=== PATIENT | female | born 1940 | race Caucasian/White ===

== ENCOUNTER 2021-02-19 17:35 | Inpatient (IN) | payer MEDICARE, OTHER ==
[~2021-02-19 17:35] MED LIST: BENZOCAINE RC PRN; Bisacodyl 10 MG Supp RECTAL PRN; DOCUSATE SODIUM RC PRN; Diclofenac Sodium 1% Gel 100 GM Tube TOP PRN; Magnesium Hydroxide 400 MG/5 ML Susp 30 ML Cup PO PRN; Melatonin 3 MG Tab PO PRN; Ondansetron 4 MG Tab.DIS PO PRN; Polyethylene Glycol 3350 Powder 17 GM Packet PO PRN; Promethazine 25 MG Tab PO PRN; Simethicone 80 MG Tab.Chew PO PRN; Sodium Phosphate,Monobasic/Sodium Phosphate,Dibasic Enema 133 ML Bottle RECTAL PRN; [UNRECOGNIZED DRUG - OTHER] RC PRN; [UNRECOGNIZED DRUG - OTHER] SCH; cloNIDine 0.1 MG Tab PO PRN; hydrALAZINE 25 MG Tab PO PRN
[2021-02-19] MEDS ORDERED: Aluminum Hydroxide/Magnesium Hydroxide/Simethicone Susp 30 ML Cup PO PRN (18:00)
[2021-02-19] MEDS: atorvaSTATin 10 MG Tab PO SCH (22:51)
[2021-02-19] MEDS: Nortriptyline 10 MG Cap PO SCH (22:51)
[2021-02-19] MEDS: Warfarin 2 MG Tab PO SCH (22:51)
[2021-02-20] MEDS: Levothyroxine 88 MCG Tab PO SCH (06:23)
[2021-02-20] MEDS: Furosemide 20 MG Tab PO SCH (08:23)
[2021-02-20] MEDS: Aspirin 81 MG Tab.EC PO SCH (08:23)
[2021-02-20] MEDS: DULoxetine 60 MG Cap PO SCH (08:23)
[2021-02-20] MEDS: Pantoprazole 40 MG Tab.CR PO SCH (08:24)
[2021-02-20] MEDS: Calcium Citrate/Vitamin D3 315 MG-250 Unit Tab PO SCH (08:24)
[2021-02-20] MEDS: Atenolol 50 MG Tab PO SCH (08:24)
[2021-02-20] MEDS: Lidocaine 4% 1 each Patch TOP SCH (08:25)
[2021-02-20] MEDS: amLODIPine 5 MG Tab PO SCH (08:25)
[2021-02-20] MEDS: metFORMIN 500 MG Tab PO SCH (08:46)
--- NOTE | 2021-02-20 09:55 | PCM.HP.2 ---
H&P History of Present Illness - General Date of Service: 02/20/21 Admit Problem/Dx: Admission Diagnosis/Problem Admission Diagnosis/Problem CVA, Cerebrovascular accident Source of Information: Patient, [facility] Records History Limitations: Reports: Other (history is tangential, rambling at times, difficult to redirect) - History of Present Illness Initial Comments - Free Text/Narative: Sherita had a ground level fall on 01/27/21 and was hospitalized at [facility] in [place], [place]. She was determined to have a small acute infarct in the left thalamus and posterior limb of the internal capsule. CTA of head and neck negative for high-grade stenosis. MRI of brain showed acute lacunar infarct within the left thalamus with chronic right MCA territory infarct and chronic lacunar infarct within the right cerebellum. She was then sent to an comprehensive rehab facility in [place], [place]. She has weakness and clumsiness of right hand and leg. Her leg caves on her when standing. She desired to return home to [place] to be closer to family so was admitted here. She will be swingbed for rehab services to regain strength and balance. Depending upon recovery she will either return home or be admitted to assisted living or less likely detention. She reports having a normal video swallow study. She declined Speech Therapy stating, "I'm an old lady." She has been cooperative with OT and PT services. Onset of Symptoms: Reports: Other. Denies: Sudden Symptom Onset Date: 01/27/21 Location: Reports: Upper Extremity, Right, Lower Extremity, Right Quality: Reports: Other Severity: Moderate Improves with: Reports: Other Worsens with: Reports: Other Context: Reports: Activity/Exercise Associated Symptoms: Reports: Weakness - Related Data Allergies/Adverse Reactions: Allergies Allergy/AdvReac Type Severity Reaction Status Date / Time No Known Allergies Allergy Verified 02/19/21 10:49 Home Medications: Home Meds DULoxetine [Cymbalta] 60 mg PO DAILY 05/17/17 [History] atenoloL [Atenolol] 50 mg PO DAILY 05/17/17 [History] Furosemide 20 mg PO DAILY 03/05/20 [History] Levothyroxine [Synthroid] 88 mcg PO ACBREAKFAST 03/05/20 [History] Nortriptyline 10 mg PO BEDTIME 03/05/20 [History] atorvaSTATin [Lipitor] 5 mg PO BEDTIME 03/05/20 [History] Acetaminophen 650 mg PO Q4H PRN 02/19/21 [History] Alum Hydrox/Mag Hydrox/Simeth [Mag-Al Plus] 30 ml PO Q4H PRN 02/19/21 [History] Aspirin 81 mg PO DAILY 02/19/21 [History] Bisacodyl [Laxative Suppository] 10 mg RC DAILY PRN 02/19/21 [History] Calcium Carbonate [Tums] 500 mg PO TID PRN 02/19/21 [History] Calcium Citrate 950 mg PO DAILY 02/19/21 [History] Diclofenac Sodium [Voltaren 1% Gel] 4 gm TOP Q6H PRN 02/19/21 [History] Docusate Sodium/Benzocaine [Enemeez Plus Mini Enema] 5 ml RC BEDTIME PRN 02/19/21 [History] Lidocaine 4% [Aspercreme 4%] 1 patch TP DAILY 02/19/21 [History] Magnesium Hydroxide [Milk of Magnesia] 30 ml PO DAILY PRN 02/19/21 [History] Melatonin 3 mg PO BEDTIME PRN 02/19/21 [History] Ondansetron [Ondansetron Odt] 4 mg PO Q4H PRN 02/19/21 [History] Pantoprazole [ProTONIX] 40 mg PO DAILY 02/19/21 [History] Promethazine [Phenergan] 25 mg PO Q6H PRN 02/19/21 [History] Sennosides/Docusate Sodium [Docusate Sodium-Sennosides Tab] 2 tab PO BID PRN 02/19/21 [History] Simethicone 80 mg PO TID PRN 02/19/21 [History] Sodium Phosphate,Potter-Dibasic [Enema Ready To Use] 133 ml RC DAILY PRN 02/19/21 [History] Warfarin [Coumadin] 4 mg PO BEDTIME 02/19/21 [History] amLODIPine [Norvasc] 5 mg PO DAILY 02/19/21 [History] cloNIDine [Catapres] 0.1 mg PO Q6H PRN 02/19/21 [History] hydrALAZINE [Apresoline] 25 mg PO Q6H PRN 02/19/21 [History] metFORMIN HCl [Metformin HCl] 500 mg PO DAILY 02/19/21 [History] polyethylene glycoL 3350 [Polyethylene Glycol 3350] 17 gm PO DAILY PRN 02/19/21 [History] Past Medical History - Past Health History Medical/Surgical History: Denies Medical/Surgical History HEENT History: Reports: Other (See Below) Other HEENT History: Thyroid eye disease Cardiovascular History: Reports: High Cholesterol, Hypertension Genitourinary History: Reports: Other (See Below) Other Genitourinary History: Mixed stress and urge incontinece Musculoskeletal History: Reports: Arthritis, Back Pain, Chronic, Fibromyalgia, Osteoarthritis, Other (See Below) Other Musculoskeletal History: Chronic right sided low back pain. Spinal stenosis. Plantar fasciits. Cervical stenosis. Lumbar stenosis Neurological History: Reports: CVA Psychiatric History: Reports: Anxiety, Other (See Below) Other Psychiatric History: Disinhibition behavior Endocrine/Metabolic History: Reports: Diabetes, Type II, Hyperthyroidism, Hypothyroidism Other Endocrine/Metabolic History: Postablative hypothyroidism. Recent night sweats. Graves Disease Dermatologic History: Reports: Other (See Below) Other Dermatologic History: yeast dermatitis - Past Surgical History HEENT Surgical History: Reports: Cataract Surgery, Tonsillectomy Other HEENT Surgeries/Procedures: Tympanoplasty Endocrine Surgical History: Reports: Thyroidectomy Musculoskeletal Surgical History: Reports: Arthroscopic Knee Social & Family History - Family History Family Medical History: No Pertinent Family History - Tobacco Use Tobacco Use Status *Q: Never Tobacco User - Alcohol Use Alcohol Use History: No - Living Situation & Occupation Occupation: Retired H&P Review of Systems - Review of Systems: Review Of Systems: See Below General: Reports: Weakness HEENT: Reports: Glasses Pulmonary: Reports: No Symptoms Cardiovascular: Reports: No Symptoms, Blood Pressure Problem Gastrointestinal: Reports: No Symptoms Genitourinary: Reports: Incontinence Musculoskeletal: Reports: Back Pain Skin: Reports: No Symptoms Psychiatric: Reports: Anxiety, Other (disinhibition, tangential conversation) Neurological: Reports: Difficulty Walking, Weakness, Gait Disturbance Hematologic/Lymphatic: Reports: No Symptoms Immunologic: Reports: No Symptoms Exam - Exam Exam: See Below - Vital Signs Vital Signs: Last Vital Signs Temp 98.7 F 02/20/21 06:00 Pulse 83 02/20/21 08:24 Resp 20 02/20/21 06:00 BP 149/63 H 02/20/21 08:25 Pulse Ox 99 02/20/21 06:00 Weight: 181 lb 12.8 oz - Exam General: Alert, Oriented, Cooperative HEENT: Conjunctiva Clear, EACs Clear, Hearing Intact, Mucosa Moist & [place], Nares Patent Neck: Supple, Trachea Midline, Full Range of Motion. No: Carotid Bruit Lungs: Clear to Auscultation, Normal Respiratory Effort Cardiovascular: Regular Rate, Regular Rhythm, Normal S1, Normal S2 GI/Abdominal Exam: Normal Bowel Sounds, Soft, Non-Tender, No Organomegaly Extremities: Normal Inspection, Non-Tender Skin: Warm, Dry, Intact Neurological: Strength Equal Bilateral, Other Neuro Extensive - Mental Status: Alert, Oriented x3, Normal Cognition, Memory Intact Neuro Extensive - Motor, Sensory, Reflexes: Abnormal Gait, Hemeplagia (R) Psychiatric: Alert, Anxious (weepy), Depressed - Patient Data Lab Results Last 24 hrs: Laboratory Results - last 24 hr 02/20/21 Range/Units 06:08 PT 29.4 H (9.9-12.5) SEC INR 2.7 (2.0-3.5) Sepsis Event Note - Evaluation Sepsis Screening Result: No Definite Risk - Focused Exam Vital Signs: Vital Signs Temp Pulse Pulse Resp BP BP Pulse Ox 02/20/21 08:25 149/63 H 02/20/21 08:24 83 149/63 H 02/20/21 06:00 98.7 F 83 20 149/63 H 99 02/19/21 23:02 96.4 F L 87 20 169/80 H 99 *Q Meaningful Use (ADM) - VTE *Q VTE Pharmacological Contraindications *Q: Not Candidate LT Anticoag - Problem List (1) CVA (cerebral vascular accident) SNOMED Code(s): 033326919 ICD Code: I63.9 - CEREBRAL INFARCTION, UNSPECIFIED Status: Acute Priority: High Current Visit: Yes Onset Date: ~01/27/21 Qualifiers: Precerebral and cerebral artery: unspecified cerebral artery Problem List Initiated/Reviewed/Updated: Yes Orders Last 24hrs: Active Orders 24 hr Category Date Time Status Patient Status [ADT] Routine ADT 02/19/21 15:26 Active Blood Glucose Check, Bedside [RC] .PRN Care 02/19/21 15:39 Active Oxygen Therapy [RC] .PRN Care 02/19/21 15:26 Active Up With Assistance [RC] 08,20 Care 02/19/21 15:31 Active Vital Signs [RC] 06,18 Care 02/19/21 15:26 Active Consult to Case Management/Crisis Specialist [CONS] Cons 02/19/21 15:31 Active Routine OT Evaluation and Treatment [CONS] Routine Cons 02/19/21 15:31 Active PT Evaluation and Treatment [CONS] Routine Cons 02/19/21 15:31 Active [employer] Diet [DIET] Diet 02/20/21 Breakfast Active INR,PT,PROTHROMBIN TIME [COAG] Routine Lab 02/21/21 05:00 Ordered Acetaminophen [TylenoL] Med 02/19/21 18:00 Active 650 mg PO Q4H PRN Alum Hydrox/Mag Hydrox/Simeth [Mag-Al Plus] Med 02/19/21 18:00 Active 30 ml PO Q4H PRN Aspirin [Halfprin] Med 02/20/21 08:00 Active 81 mg PO DAILY Calcium Carbonate [Tums Extra Strength] Med 02/19/21 13:56 Active 750 mg PO TID PRN Calcium Citrate/Vitamin D3 [Calcium Citrate + D] Med 02/20/21 08:00 Active 3 tab PO DAILY DULoxetine [Cymbalta] Med 02/20/21 08:00 Active 60 mg PO DAILY Diclofenac Sodium [Voltaren 1% Gel] Med 02/19/21 13:44 Active 4 gm TOP Q6H PRN Docusate Sodium/Sennosides [Senna Plus] Med 02/19/21 13:44 Active 2 tab PO BID PRN Furosemide [Lasix] Med 02/20/21 08:00 Active 20 mg PO DAILY Levothyroxine [Synthroid] Med 02/20/21 07:00 Active 88 mcg PO ACBREAKFAST Lidocaine 4% [Aspercreme 4%] Med 02/20/21 08:00 Active 1 each TOP DAILY Magnesium Hydroxide [Milk of Magnesia] Med 02/19/21 13:44 Active 30 ml PO DAILY PRN Melatonin Med 02/19/21 13:44 Active 3 mg PO BEDTIME PRN Nortriptyline Med 02/19/21 20:00 Active 10 mg PO BEDTIME Ondansetron [Zofran ODT] Med 02/19/21 14:02 Active 4 mg PO Q4H PRN Pantoprazole [ProTONIX] Med 02/20/21 08:00 Active 40 mg PO DAILY Pharmacy Consult [Consult to Pharmacy] Med 02/19/21 15:30 Pending 1 each .XX ASDIRECTED Promethazine [Phenergan] Med 02/19/21 13:44 Active 25 mg PO Q6H PRN Simethicone Med 02/19/21 13:44 Active 80 mg PO TID PRN Warfarin [Coumadin] Med 02/19/21 20:00 Active 4 mg PO BEDTIME amLODIPine [Norvasc] Med 02/20/21 08:00 Active 5 mg PO DAILY atenoloL [Tenormin] Med 02/20/21 08:00 Active 50 mg PO DAILY atorvaSTATin [Lipitor] Med 02/19/21 20:00 Active 5 mg PO BEDTIME bisacodyL [Dulcolax] Med 02/19/21 13:38 Active 10 mg RECTAL DAILY PRN metFORMIN [Glucophage] Med 02/20/21 08:00 Active 500 mg PO DAILY polyethylene glycoL 3350 [MiraLAX] Med 02/19/21 13:44 Active 17 gm PO DAILY PRN VTE Pharmacological Contraindications [AST] Click To Oth 02/19/21 15:31 Ordered Edit Resuscitation Status Routine Resus Stat 02/19/21 15:25 Ordered Medication Orders Acetaminophen (Acetaminophen 325 Mg Tab) 650 mg PO Q4H PRN PRN Reason: Pain Al Hydroxide/Mg Hydroxide (Aluminum Hydroxide/Magnesium Hydroxide/Simethicone Susp 30 Ml Cup) 30 ml PO Q4H PRN PRN Reason: Constipation Amlodipine Besylate (Amlodipine 5 Mg Tab) 5 mg PO DAILY [facility] Last Admin: 02/20/21 08:25 Dose: 5 mg Documented by: HARESH Aspirin (Aspirin 81 Mg Tab.Ec) 81 mg PO DAILY [facility] Last Admin: 02/20/21 08:23 Dose: 81 mg Documented by: HARESH Atenolol (Atenolol 50 Mg Tab) 50 mg PO DAILY [facility] Last Admin: 02/20/21 08:24 Dose: 50 mg Documented by: HARESH Atorvastatin Calcium (Atorvastatin 10 Mg Tab) 5 mg PO BEDTIME [facility] Last Admin: 02/19/21 22:51 Dose: 5 mg Documented by: BRUNILDAABESonal Bisacodyl (Bisacodyl 10 Mg Supp) 10 mg RECTAL DAILY PRN PRN Reason: Constipation Calcium Carbonate/Glycine (Calcium Carbonate 750 Mg Tab.Chew) 750 mg PO TID PRN PRN Reason: Heartburn Calcium Citrate (Calcium Citrate/Vitamin D3 315 Mg-250 Unit Tab) 3 tab PO DAILY [facility] Last Admin: 02/20/21 08:24 Dose: 3 tab Documented by: HARESH Diclofenac Sodium (Diclofenac Sodium 1% Gel 100 Gm Tube) 4 gm TOP Q6H PRN PRN Reason: Pain Duloxetine HCl (Duloxetine 60 Mg Cap) 60 mg PO DAILY [facility] Last Admin: 02/20/21 08:23 Dose: 60 mg Documented by: HARESH Furosemide (Furosemide 20 Mg Tab) 20 mg PO DAILY [facility] Last Admin: 02/20/21 08:23 Dose: 20 mg Documented by: HARESH Levothyroxine Sodium (Levothyroxine 88 Mcg Tab) 88 mcg PO ACBREAKFAST [facility] Last Admin: 02/20/21 06:23 Dose: 88 mcg Documented by: ЕКАТЕРИНА Lidocaine (Lidocaine 4% 1 Each Patch) 1 each TOP DAILY [facility] Last Admin: 02/20/21 08:25 Dose: 1 each Documented by: HARESH Magnesium Hydroxide (Magnesium Hydroxide 400 Mg/5 Ml Susp 30 Ml Cup) 30 ml PO DAILY PRN PRN Reason: Constipation Melatonin (Melatonin 3 Mg Tab) 3 mg PO BEDTIME PRN PRN Reason: Insomnia Metformin HCl (Metformin 500 Mg Tab) 500 mg PO DAILY [facility] Last Admin: 02/20/21 08:46 Dose: 500 mg Documented by: HARESH Nortriptyline HCl (Nortriptyline 10 Mg Cap) 10 mg PO BEDTIME [facility] Last Admin: 02/19/21 22:51 Dose: 10 mg Documented by: ROMPATRICIA Ondansetron HCl (Ondansetron 4 Mg Tab.Dis) 4 mg PO Q4H PRN PRN Reason: Nausea Pantoprazole Sodium (Pantoprazole 40 Mg Tab.Cr) 40 mg PO DAILY [facility] Last Admin: 02/20/21 08:24 Dose: 40 mg Documented by: HARESH Pharmacy Consult (Pharmacy Consult Order) 1 each .XX ASDIRECTED [facility] Polyethylene Glycol (Polyethylene Glycol 3350 Powder 17 Gm Packet) 17 gm PO DAILY PRN PRN Reason: Constipation Promethazine HCl (Promethazine 25 Mg Tab) 25 mg PO Q6H PRN PRN Reason: Nausea Senna/Docusate Sodium (Docusate Sodium/Sennosides 50-8.6 Mg Tab) 2 tab PO BID PRN PRN Reason: Constipation Simethicone (Simethicone 80 Mg Tab.Chew) 80 mg PO TID PRN PRN Reason: Gas Warfarin Sodium (Warfarin 2 Mg Tab) 4 mg PO BEDTIME [facility] Last Admin: 02/19/21 22:51 Dose: 4 mg Documented by: MADALYN Assessment/Plan Comment:: Assessment: 1. CVA, acute. 2. Gait abnormality with ADL dysfunction. 3. DM type 2. 4. Essential hypertension. 5. Hyperlipidemia. 6. Hypothyroidism. 7. Lumbar stenosis. 8. Fibromyalgia. 9. Anxiety. Plan: She is admitted to [facility] for rehab services including PT and OT due to weakness and clumsiness of right upper and lower extremities. She also requires case management to assist with discharge planning/ coordination. I will discuss Code Status with patient and spouse together as she was not comfortable making her wishes known without Tanja present. She does have an [employer] Directive on file. Her family had indicated most likely discharge would be to [facility] but Sherita's wish is to go home. - Tanja; Sons- Ar Dowd, Simone; Daughter- Thelma Dowd and Simone have daughter's who are GUERO's.
[2021-02-20] MEDS: Nortriptyline 10 MG Cap PO SCH (20:02)
[2021-02-20] MEDS: atorvaSTATin 10 MG Tab PO SCH (20:02)
[2021-02-20] MEDS: Warfarin 2 MG Tab PO SCH (20:02)
[2021-02-21] MEDS: Levothyroxine 88 MCG Tab PO SCH (06:28)
[2021-02-21] MEDS: DULoxetine 60 MG Cap PO SCH (08:03)
[2021-02-21] MEDS: Aspirin 81 MG Tab.EC PO SCH (08:03)
[2021-02-21] MEDS: Lidocaine 4% 1 each Patch TOP SCH (08:03)
[2021-02-21] MEDS: Atenolol 50 MG Tab PO SCH (08:03)
[2021-02-21] MEDS: Pantoprazole 40 MG Tab.CR PO SCH (08:04)
[2021-02-21] MEDS: Furosemide 20 MG Tab PO SCH (08:04)
[2021-02-21] MEDS: amLODIPine 5 MG Tab PO SCH (08:04)
[2021-02-21] MEDS: metFORMIN 500 MG Tab PO SCH (08:04)
[2021-02-21] MEDS: Calcium Citrate/Vitamin D3 315 MG-250 Unit Tab PO SCH (08:05)
[2021-02-21] MEDS: Nortriptyline 10 MG Cap PO SCH (20:03)
[2021-02-21] MEDS: atorvaSTATin 10 MG Tab PO SCH (20:03)
[2021-02-21] MEDS: Acetaminophen 325 MG Tab PO PRN (21:50)
[2021-02-22] MEDS: Levothyroxine 88 MCG Tab PO SCH (06:41)
[2021-02-22] MEDS: Lidocaine 4% 1 each Patch TOP SCH (08:44)
[2021-02-22] MEDS: Calcium Citrate/Vitamin D3 315 MG-250 Unit Tab PO SCH (08:44)
[2021-02-22] MEDS: Aspirin 81 MG Tab.EC PO SCH (08:44)
[2021-02-22] MEDS: Pantoprazole 40 MG Tab.CR PO SCH (08:45)
[2021-02-22] MEDS: metFORMIN 500 MG Tab PO SCH (08:45)
[2021-02-22] MEDS: DULoxetine 60 MG Cap PO SCH (08:45)
[2021-02-22] MEDS: Atenolol 50 MG Tab PO SCH (08:46)
[2021-02-22] MEDS: Furosemide 20 MG Tab PO SCH (08:46)
[2021-02-22] MEDS: amLODIPine 5 MG Tab PO SCH (08:47)
[2021-02-22] MEDS: Nortriptyline 10 MG Cap PO SCH (19:53)
[2021-02-22] MEDS: atorvaSTATin 10 MG Tab PO SCH (19:53)
[2021-02-22] MEDS: Acetaminophen 325 MG Tab PO PRN (19:57)
[2021-02-23] MEDS: Levothyroxine 88 MCG Tab PO SCH (06:38)
[2021-02-23] MEDS: metFORMIN 500 MG Tab PO SCH (08:26)
[2021-02-23] MEDS: Lidocaine 4% 1 each Patch TOP SCH (08:26)
[2021-02-23] MEDS: Calcium Citrate/Vitamin D3 315 MG-250 Unit Tab PO SCH (08:26)
[2021-02-23] MEDS: Atenolol 50 MG Tab PO SCH (08:27)
[2021-02-23] MEDS: Furosemide 20 MG Tab PO SCH (08:27)
[2021-02-23] MEDS: Aspirin 81 MG Tab.EC PO SCH (08:27)
[2021-02-23] MEDS: Pantoprazole 40 MG Tab.CR PO SCH (08:27)
[2021-02-23] MEDS: DULoxetine 60 MG Cap PO SCH (08:27)
[2021-02-23] MEDS: amLODIPine 5 MG Tab PO SCH (08:28)
[2021-02-23] MEDS: atorvaSTATin 10 MG Tab PO SCH (19:33)
[2021-02-23] MEDS: Nortriptyline 10 MG Cap PO SCH (19:33)
[2021-02-24] MEDS: Levothyroxine 88 MCG Tab PO SCH (06:18)
[2021-02-24] MEDS: Pantoprazole 40 MG Tab.CR PO SCH (08:29)
[2021-02-24] MEDS: DULoxetine 60 MG Cap PO SCH (08:29)
[2021-02-24] MEDS: Aspirin 81 MG Tab.EC PO SCH (08:29)
[2021-02-24] MEDS: Calcium Citrate/Vitamin D3 315 MG-250 Unit Tab PO SCH (08:29)
[2021-02-24] MEDS: Atenolol 50 MG Tab PO SCH (08:29)
[2021-02-24] MEDS: Furosemide 20 MG Tab PO SCH (08:30)
[2021-02-24] MEDS: amLODIPine 5 MG Tab PO SCH (08:30)
[2021-02-24] MEDS: metFORMIN 500 MG Tab PO SCH (08:30)
[2021-02-24] MEDS: Lidocaine 4% 1 each Patch TOP SCH (08:30)
[2021-02-24] MEDS: Nortriptyline 10 MG Cap PO SCH (20:51)
[2021-02-24] MEDS: Warfarin 2 MG Tab PO SCH (20:51)
[2021-02-24] MEDS: atorvaSTATin 10 MG Tab PO SCH (20:51)
[2021-02-25] MEDS: Levothyroxine 88 MCG Tab PO SCH (06:17)
[2021-02-25] MEDS: metFORMIN 500 MG Tab PO SCH (07:43)
[2021-02-25] MEDS: amLODIPine 5 MG Tab PO SCH (07:43)
[2021-02-25] MEDS: Pantoprazole 40 MG Tab.CR PO SCH (07:43)
[2021-02-25] MEDS: Atenolol 50 MG Tab PO SCH (07:43)
[2021-02-25] MEDS: Aspirin 81 MG Tab.EC PO SCH (07:44)
[2021-02-25] MEDS: Calcium Citrate/Vitamin D3 315 MG-250 Unit Tab PO SCH (07:44)
[2021-02-25] MEDS: Furosemide 20 MG Tab PO SCH (07:44)
[2021-02-25] MEDS: DULoxetine 60 MG Cap PO SCH (07:44)
[2021-02-25] MEDS: Lidocaine 4% 1 each Patch TOP SCH (07:44)
--- NOTE | 2021-02-25 14:59 | PCM.SN.2 ---
- Free Text/Narrative Note: Liliana called as she complains of a rash to her perineal area. Inspection reveals mild erythema along right labia. Odor of kenyatta present. Rx for Nystatin Cream BID x 10 days written. Otherwise no concerns and visiting with relatives. Abhijeet BAÑUELOS
[2021-02-25] MEDS: Warfarin 2 MG Tab PO SCH (20:09)
[2021-02-25] MEDS: Nystatin Crm 30 GM Tube TOP SCH (20:09)
[2021-02-25] MEDS: atorvaSTATin 10 MG Tab PO SCH (20:09)
[2021-02-25] MEDS: Nortriptyline 10 MG Cap PO SCH (20:09)
[2021-02-26] MEDS: Levothyroxine 88 MCG Tab PO SCH (06:20)
[2021-02-26] MEDS: Aspirin 81 MG Tab.EC PO SCH (07:55)
[2021-02-26] MEDS: Lidocaine 4% 1 each Patch TOP SCH (07:55)
[2021-02-26] MEDS: Nystatin Crm 30 GM Tube TOP SCH ×2 (07:55→19:55)
[2021-02-26] MEDS: Calcium Citrate/Vitamin D3 315 MG-250 Unit Tab PO SCH (07:55)
[2021-02-26] MEDS: amLODIPine 5 MG Tab PO SCH (07:56)
[2021-02-26] MEDS: Pantoprazole 40 MG Tab.CR PO SCH (07:56)
[2021-02-26] MEDS: DULoxetine 60 MG Cap PO SCH (07:56)
[2021-02-26] MEDS: Furosemide 20 MG Tab PO SCH (07:56)
[2021-02-26] MEDS: Atenolol 50 MG Tab PO SCH (07:56)
[2021-02-26] MEDS: metFORMIN 500 MG Tab PO SCH (07:56)
[2021-02-26] MEDS: Acetaminophen 325 MG Tab PO PRN ×2 (07:56→19:55)
[2021-02-26] MEDS: Warfarin 2 MG Tab PO SCH (19:54)
[2021-02-26] MEDS: atorvaSTATin 10 MG Tab PO SCH (19:54)
[2021-02-26] MEDS: Nortriptyline 10 MG Cap PO SCH (19:54)
[2021-02-27] MEDS: Levothyroxine 88 MCG Tab PO SCH (06:18)
[2021-02-27] MEDS: Lidocaine 4% 1 each Patch TOP SCH (07:31)
[2021-02-27] MEDS: Nystatin Crm 30 GM Tube TOP SCH ×2 (07:31→19:57)
[2021-02-27] MEDS: amLODIPine 5 MG Tab PO SCH (07:32)
[2021-02-27] MEDS: Acetaminophen 325 MG Tab PO PRN ×2 (07:32→19:56)
[2021-02-27] MEDS: DULoxetine 60 MG Cap PO SCH (07:32)
[2021-02-27] MEDS: metFORMIN 500 MG Tab PO SCH (07:32)
[2021-02-27] MEDS: Atenolol 50 MG Tab PO SCH (07:32)
[2021-02-27] MEDS: Calcium Citrate/Vitamin D3 315 MG-250 Unit Tab PO SCH (07:32)
[2021-02-27] MEDS: Pantoprazole 40 MG Tab.CR PO SCH (07:33)
[2021-02-27] MEDS: Furosemide 20 MG Tab PO SCH (07:33)
[2021-02-27] MEDS: Aspirin 81 MG Tab.EC PO SCH (07:33)
[2021-02-27] MEDS: Calcium Carbonate 750 MG Tab.Chew PO PRN (19:56)
[2021-02-27] MEDS: Warfarin 2 MG Tab PO SCH (19:56)
[2021-02-27] MEDS: atorvaSTATin 10 MG Tab PO SCH (19:56)
[2021-02-27] MEDS: Nortriptyline 10 MG Cap PO SCH (19:56)
[2021-02-28] MEDS: Levothyroxine 88 MCG Tab PO SCH (06:32)
[2021-02-28] MEDS: Acetaminophen 325 MG Tab PO PRN (07:56)
[2021-02-28] MEDS: Atenolol 50 MG Tab PO SCH (07:56)
[2021-02-28] MEDS: Nystatin Crm 30 GM Tube TOP SCH ×2 (07:56→20:30)
[2021-02-28] MEDS: Calcium Citrate/Vitamin D3 315 MG-250 Unit Tab PO SCH (07:57)
[2021-02-28] MEDS: Aspirin 81 MG Tab.EC PO SCH (07:57)
[2021-02-28] MEDS: metFORMIN 500 MG Tab PO SCH (07:57)
[2021-02-28] MEDS: Furosemide 20 MG Tab PO SCH (07:58)
[2021-02-28] MEDS: Pantoprazole 40 MG Tab.CR PO SCH (07:58)
[2021-02-28] MEDS: DULoxetine 60 MG Cap PO SCH (07:58)
[2021-02-28] MEDS: Lidocaine 4% 1 each Patch TOP SCH (07:58)
[2021-02-28] MEDS: amLODIPine 5 MG Tab PO SCH (07:58)
[2021-02-28] MEDS: atorvaSTATin 10 MG Tab PO SCH (20:27)
[2021-02-28] MEDS: Warfarin 2 MG Tab PO SCH (20:29)
[2021-02-28] MEDS: Nortriptyline 10 MG Cap PO SCH (20:30)
[2021-03-01] MEDS: Levothyroxine 88 MCG Tab PO SCH (06:39)
[2021-03-01] MEDS: Nystatin Crm 30 GM Tube TOP SCH ×2 (08:13→20:16)
[2021-03-01] MEDS: Lidocaine 4% 1 each Patch TOP SCH (08:13)
[2021-03-01] MEDS: Acetaminophen 325 MG Tab PO PRN (08:13)
[2021-03-01] MEDS: Calcium Citrate/Vitamin D3 315 MG-250 Unit Tab PO SCH (08:13)
[2021-03-01] MEDS: Furosemide 20 MG Tab PO SCH (08:14)
[2021-03-01] MEDS: DULoxetine 60 MG Cap PO SCH (08:14)
[2021-03-01] MEDS: metFORMIN 500 MG Tab PO SCH (08:14)
[2021-03-01] MEDS: Aspirin 81 MG Tab.EC PO SCH (08:14)
[2021-03-01] MEDS: Pantoprazole 40 MG Tab.CR PO SCH (08:14)
[2021-03-01] MEDS: amLODIPine 5 MG Tab PO SCH (08:14)
[2021-03-01] MEDS: Atenolol 50 MG Tab PO SCH (08:15)
[2021-03-01] MEDS: Nortriptyline 10 MG Cap PO SCH (20:15)
[2021-03-01] MEDS: atorvaSTATin 10 MG Tab PO SCH (20:16)
[2021-03-01] MEDS: Warfarin 2 MG Tab PO SCH (23:15)
[2021-03-02] MEDS: Levothyroxine 88 MCG Tab PO SCH (06:17)
[2021-03-02] MEDS: Lidocaine 4% 1 each Patch TOP SCH (07:39)
[2021-03-02] MEDS: Acetaminophen 325 MG Tab PO PRN (07:40)
[2021-03-02] MEDS: Nystatin Crm 30 GM Tube TOP SCH ×2 (07:40→20:20)
[2021-03-02] MEDS: amLODIPine 5 MG Tab PO SCH (07:41)
[2021-03-02] MEDS: metFORMIN 500 MG Tab PO SCH (07:41)
[2021-03-02] MEDS: Pantoprazole 40 MG Tab.CR PO SCH (07:41)
[2021-03-02] MEDS: Calcium Citrate/Vitamin D3 315 MG-250 Unit Tab PO SCH (07:41)
[2021-03-02] MEDS: Furosemide 20 MG Tab PO SCH (07:41)
[2021-03-02] MEDS: DULoxetine 60 MG Cap PO SCH (07:41)
[2021-03-02] MEDS: Aspirin 81 MG Tab.EC PO SCH (07:41)
[2021-03-02] MEDS: Atenolol 50 MG Tab PO SCH (07:41)
[2021-03-02] MEDS: atorvaSTATin 10 MG Tab PO SCH (20:20)
[2021-03-02] MEDS: Warfarin 2 MG Tab PO SCH (20:20)
[2021-03-02] MEDS: Nortriptyline 10 MG Cap PO SCH (20:20)
[2021-03-02] MEDS: Calcium Carbonate 750 MG Tab.Chew PO PRN (20:22)
[2021-03-03] MEDS: Levothyroxine 88 MCG Tab PO SCH (06:41)
[2021-03-03] MEDS: Lidocaine 4% 1 each Patch TOP SCH (08:16)
[2021-03-03] MEDS: DULoxetine 60 MG Cap PO SCH (08:19)
[2021-03-03] MEDS: metFORMIN 500 MG Tab PO SCH (08:19)
[2021-03-03] MEDS: Calcium Citrate/Vitamin D3 315 MG-250 Unit Tab PO SCH (08:19)
[2021-03-03] MEDS: Furosemide 20 MG Tab PO SCH (08:20)
[2021-03-03] MEDS: Aspirin 81 MG Tab.EC PO SCH (08:20)
[2021-03-03] MEDS: amLODIPine 5 MG Tab PO SCH (08:20)
[2021-03-03] MEDS: Pantoprazole 40 MG Tab.CR PO SCH (08:20)
[2021-03-03] MEDS: Atenolol 50 MG Tab PO SCH (08:21)
[2021-03-03] MEDS: Nystatin Crm 30 GM Tube TOP SCH ×2 (08:23→19:40)
[2021-03-03] MEDS: Nortriptyline 10 MG Cap PO SCH (19:40)
[2021-03-03] MEDS: Warfarin 2 MG Tab PO SCH (19:40)
[2021-03-03] MEDS: atorvaSTATin 10 MG Tab PO SCH (19:40)
[2021-03-03] MEDS: Calcium Carbonate 750 MG Tab.Chew PO PRN (19:42)
[2021-03-04] MEDS: Levothyroxine 88 MCG Tab PO SCH (06:03)
[2021-03-04] MEDS: Lidocaine 4% 1 each Patch TOP SCH (08:09)
[2021-03-04] MEDS: Acetaminophen 325 MG Tab PO PRN ×2 (08:09→21:28)
[2021-03-04] MEDS: Atenolol 50 MG Tab PO SCH (08:09)
[2021-03-04] MEDS: Furosemide 20 MG Tab PO SCH (08:10)
[2021-03-04] MEDS: Calcium Citrate/Vitamin D3 315 MG-250 Unit Tab PO SCH (08:10)
[2021-03-04] MEDS: metFORMIN 500 MG Tab PO SCH (08:10)
[2021-03-04] MEDS: DULoxetine 60 MG Cap PO SCH (08:10)
[2021-03-04] MEDS: Pantoprazole 40 MG Tab.CR PO SCH (08:10)
[2021-03-04] MEDS: amLODIPine 5 MG Tab PO SCH (08:10)
[2021-03-04] MEDS: Aspirin 81 MG Tab.EC PO SCH (08:10)
[2021-03-04] MEDS: Nystatin Crm 30 GM Tube TOP SCH ×2 (08:11→21:29)
[2021-03-04] MEDS: atorvaSTATin 10 MG Tab PO SCH (21:27)
[2021-03-04] MEDS: Warfarin 2 MG Tab PO SCH (21:28)
[2021-03-04] MEDS: Nortriptyline 10 MG Cap PO SCH (21:28)
[2021-03-05] MEDS: Levothyroxine 88 MCG Tab PO SCH (06:13)
[2021-03-05] MEDS: Aspirin 81 MG Tab.EC PO SCH (07:44)
[2021-03-05] MEDS: Furosemide 20 MG Tab PO SCH (07:44)
[2021-03-05] MEDS: Calcium Citrate/Vitamin D3 315 MG-250 Unit Tab PO SCH (07:44)
[2021-03-05] MEDS: DULoxetine 60 MG Cap PO SCH (07:44)
[2021-03-05] MEDS: Pantoprazole 40 MG Tab.CR PO SCH (07:44)
[2021-03-05] MEDS: Atenolol 50 MG Tab PO SCH (07:45)
[2021-03-05] MEDS: amLODIPine 5 MG Tab PO SCH (07:45)
[2021-03-05] MEDS: Nystatin Crm 30 GM Tube TOP SCH ×2 (07:45→20:16)
[2021-03-05] MEDS: metFORMIN 500 MG Tab PO SCH (07:45)
[2021-03-05] MEDS: Lidocaine 4% 1 each Patch TOP SCH (07:46)
[2021-03-05] MEDS: atorvaSTATin 10 MG Tab PO SCH (20:14)
[2021-03-05] MEDS: Nortriptyline 10 MG Cap PO SCH (20:15)
[2021-03-05] MEDS: Warfarin 2 MG Tab PO SCH (20:15)
[2021-03-06] MEDS: Levothyroxine 88 MCG Tab PO SCH (06:12)
[2021-03-06] MEDS: Pantoprazole 40 MG Tab.CR PO SCH (07:49)
[2021-03-06] MEDS: amLODIPine 5 MG Tab PO SCH (07:50)
[2021-03-06] MEDS: metFORMIN 500 MG Tab PO SCH (07:50)
[2021-03-06] MEDS: DULoxetine 60 MG Cap PO SCH (07:50)
[2021-03-06] MEDS: Calcium Citrate/Vitamin D3 315 MG-250 Unit Tab PO SCH (07:50)
[2021-03-06] MEDS: Lidocaine 4% 1 each Patch TOP SCH (07:51)
[2021-03-06] MEDS: Aspirin 81 MG Tab.EC PO SCH (07:51)
[2021-03-06] MEDS: Nystatin Crm 30 GM Tube TOP SCH ×2 (07:51→19:24)
[2021-03-06] MEDS: Furosemide 20 MG Tab PO SCH (07:51)
[2021-03-06] MEDS: Atenolol 50 MG Tab PO SCH (07:51)
[2021-03-06] MEDS: Warfarin 2 MG Tab PO SCH (19:22)
[2021-03-06] MEDS: Nortriptyline 10 MG Cap PO SCH (19:23)
[2021-03-06] MEDS: atorvaSTATin 10 MG Tab PO SCH (19:23)
[2021-03-07] MEDS: Levothyroxine 88 MCG Tab PO SCH (06:17)
[2021-03-07 07:52] LABS: ANION GAP 11.9 mmol/L (5-15)
[2021-03-07] MEDS: amLODIPine 5 MG Tab PO SCH (09:23)
[2021-03-07] MEDS: Aspirin 81 MG Tab.EC PO SCH (09:23)
[2021-03-07] MEDS: Atenolol 50 MG Tab PO SCH (09:24)
[2021-03-07] MEDS: Calcium Citrate/Vitamin D3 315 MG-250 Unit Tab PO SCH (09:24)
[2021-03-07] MEDS: Pantoprazole 40 MG Tab.CR PO SCH (09:24)
[2021-03-07] MEDS: Furosemide 20 MG Tab PO SCH (09:24)
[2021-03-07] MEDS: DULoxetine 60 MG Cap PO SCH (09:24)
[2021-03-07] MEDS: metFORMIN 500 MG Tab PO SCH (09:24)
[2021-03-07] MEDS: Nystatin Crm 30 GM Tube TOP SCH ×2 (09:25→21:14)
[2021-03-07] MEDS: Lidocaine 4% 1 each Patch TOP SCH (09:25)
--- NOTE | 2021-03-07 10:04 | PCM.SN.2 ---
- Free Text/Narrative Note: Coverage note 03/07/21 S: "Feel like I am having a stroke again": I was called to see pt because she felt like her right leg was weak, like she was having a stroke again. Pt had a CVA in January while in [place] states she had weakness in right arm and leg, had a blood clot in brainstem. She was already on blood thinners and was treated with PT. Pt was able to walk with walker when she entered [facility] and her arm was about back to normal OBJ: Pt awake and alert and anxious Temp 98 pulse 84 BP 128/75 RR 17 O2 sat 94 Lungs clear Cor w/o rubs,murmurs or gallops Ext: no edema No facial asymmetry speech fluent Moving all ext equally except for minimal weakness Right elbow flexion Pt able to walk with walker w/o obvious leg weakness right or left Meds: Norvasc,Atenolol Lipitor, Luis and D, Cymbalta, Lasix , Synthroid,lidocaine cream, metformin, nortriptyline, Protonix, warfarin, nystatin cream Labs:inr 2.5 na 137 K 2.9 cl 98 CO2 30 BUN 13 cr.9 IMPL 1. CVA- no sign of focal weakness 2. Hypokelima: suspect this is cause for weak feeling- replace po 3. AODM: check BS bid, may need to increase metformin
[2021-03-07] MEDS: Potassium Bicarbonate 25 MEQ Tab.EFF PO SCH ×2 (11:49→20:50)
[2021-03-07] MEDS: Warfarin 2 MG Tab PO SCH (20:50)
[2021-03-07] MEDS: Nortriptyline 10 MG Cap PO SCH (20:50)
[2021-03-07] MEDS: atorvaSTATin 10 MG Tab PO SCH (20:50)
[2021-03-08] MEDS: Levothyroxine 88 MCG Tab PO SCH (06:38)
--- NOTE | 2021-03-08 08:56 | PCM.SN.2 ---
- Free Text/Narrative Note: Coverage note 03/08/2021 S. Pt feels her walking is back to baseline O:Moving all ext equally K 3.4 yesterday evening, Mg 1.5 IMP: Weakness resolved- secondary to electrolyte abnormality Plan: start Kcl 20 QD and Mg Cl 64 QD
[2021-03-08] MEDS: Potassium Bicarbonate 25 MEQ Tab.EFF PO SCH ×2 (09:11→09:20)
[2021-03-08] MEDS: Calcium Citrate/Vitamin D3 315 MG-250 Unit Tab PO SCH (09:12)
[2021-03-08] MEDS: amLODIPine 5 MG Tab PO SCH (09:13)
[2021-03-08] MEDS: metFORMIN 500 MG Tab PO SCH (09:13)
[2021-03-08] MEDS: Aspirin 81 MG Tab.EC PO SCH (09:13)
[2021-03-08] MEDS: DULoxetine 60 MG Cap PO SCH (09:13)
[2021-03-08] MEDS: Pantoprazole 40 MG Tab.CR PO SCH (09:14)
[2021-03-08] MEDS: Atenolol 50 MG Tab PO SCH (09:14)
[2021-03-08] MEDS: Lidocaine 4% 1 each Patch TOP SCH (09:14)
[2021-03-08] MEDS: Furosemide 20 MG Tab PO SCH (09:14)
[2021-03-08] MEDS: Magnesium Chloride 64 MG Tab.ER PO SCH (09:18)
[2021-03-08] MEDS: Nortriptyline 10 MG Cap PO SCH (20:55)
[2021-03-08] MEDS: atorvaSTATin 10 MG Tab PO SCH (20:55)
[2021-03-08] MEDS: Warfarin 2 MG Tab PO SCH (20:55)
[2021-03-09 06:14] VITALS: BP 151/67; PULSE 82
[2021-03-09] MEDS: Levothyroxine 88 MCG Tab PO SCH (06:32)
--- NOTE | 2021-03-09 08:40 | PCM.DCSUM1 ---
Discharge Summary - Hospital Course Free Text/Narrative:: Sherita suffered a CVA on 01/27/21 while in [place], [place]. She was hospitalized and in a Rehab facility prior to returning to [place], [place]. She was admitted swing bed on 02/19/21 for continued therapy services. She completed PT and OT and is ready for discharge to Assisted Living. She uses a walker and is able to walk 200-300 feet. She is able to doff and don clothing. She is eating independently. She will need assist with meals, bathing, and household services. Her spouse is independent but will reside with her in the Assisted Living facility, [facility]. She is on Coumadin and ASA for stroke prevention. She will be managed by [facility]. Follow up with me in 2 weeks. Diagnosis: Stroke: Yes Modified [place] Scale: Slight Disable;Unable to Carry Out Prev Act.Able to Look After Affairs Modified [place] Scale Score: 2 - Discharge Data Discharge Date: 03/09/21 Discharge Disposition: Home, Self-Care 01 Condition: Good - Referral to Home Health Primary Care Physician: Qiana King PA-C - Discharge Diagnosis/Problem(s) (1) CVA (cerebral vascular accident) SNOMED Code(s): 487918243 ICD Code: I63.9 - CEREBRAL INFARCTION, UNSPECIFIED Status: Acute Priority: High Current Visit: Yes Onset Date: ~01/27/21 Qualifiers: CVA mechanism: thrombosis Precerebral and cerebral artery: unspecified cerebral artery Qualified Code(s): I63.30 - Cerebral infarction due to thrombosis of unspecified cerebral artery - Patient Summary/Data Consults: Consultations 02/19/21 15:31 Consult to Case Management/Lean Process Deployment Consultant [CONS] Routine OT Evaluation and Treatment [CONS] Routine PT Evaluation and Treatment [CONS] Routine - Patient Instructions Diet: Usual Diet as Tolerated Activity: As Tolerated Driving: Do Not Drive Showering/Bathing: May Shower - Discharge Plan *PRESCRIPTION DRUG MONITORING PROGRAM REVIEWED*: Not Applicable *COPY OF PRESCRIPTION DRUG MONITORING REPORT IN PATIENT ROBERTO: Not Applicable Home Medications: Home Meds DULoxetine [Cymbalta] 60 mg PO DAILY 05/17/17 [History] atenoloL [Atenolol] 50 mg PO DAILY 05/17/17 [History] Furosemide 20 mg PO DAILY 03/05/20 [History] Levothyroxine [Synthroid] 88 mcg PO ACBREAKFAST 03/05/20 [History] Nortriptyline 10 mg PO BEDTIME 03/05/20 [History] atorvaSTATin [Lipitor] 5 mg PO BEDTIME 03/05/20 [History] Acetaminophen 650 mg PO Q4H PRN 02/19/21 [History] Alum Hydrox/Mag Hydrox/Simeth [Mag-Al Plus] 30 ml PO Q4H PRN 02/19/21 [History] Aspirin 81 mg PO DAILY 02/19/21 [History] Bisacodyl [Laxative Suppository] 10 mg RC DAILY PRN 02/19/21 [History] Calcium Carbonate [Tums] 500 mg PO TID PRN 02/19/21 [History] Calcium Citrate 950 mg PO DAILY 02/19/21 [History] Diclofenac Sodium [Voltaren 1% Gel] 4 gm TOP Q6H PRN 02/19/21 [History] Docusate Sodium/Benzocaine [Enemeez Plus Mini Enema] 5 ml RC BEDTIME PRN 02/19/21 [History] Lidocaine 4% [Aspercreme 4%] 1 patch TP DAILY 02/19/21 [History] Magnesium Hydroxide [Milk of Magnesia] 30 ml PO DAILY PRN 02/19/21 [History] Melatonin 3 mg PO BEDTIME PRN 02/19/21 [History] Ondansetron [Ondansetron Odt] 4 mg PO Q4H PRN 02/19/21 [History] Pantoprazole [ProTONIX] 40 mg PO DAILY 02/19/21 [History] Promethazine [Phenergan] 25 mg PO Q6H PRN 02/19/21 [History] Sennosides/Docusate Sodium [Docusate Sodium-Sennosides Tab] 2 tab PO BID PRN 02/19/21 [History] Simethicone 80 mg PO TID PRN 02/19/21 [History] Sodium Phosphate,[place]-Dibasic [Enema Ready To Use] 133 ml RC DAILY PRN 02/19/21 [History] Warfarin [Coumadin] 4 mg PO BEDTIME 02/19/21 [History] amLODIPine [Norvasc] 5 mg PO DAILY 02/19/21 [History] cloNIDine [Catapres] 0.1 mg PO Q6H PRN 02/19/21 [History] hydrALAZINE [Apresoline] 25 mg PO Q6H PRN 02/19/21 [History] metFORMIN HCl [Metformin HCl] 500 mg PO DAILY 02/19/21 [History] polyethylene glycoL 3350 [Polyethylene Glycol 3350] 17 gm PO DAILY PRN 02/19/21 [History] Oxygen Therapy Mode: Room Air Patient Handouts: Hospital Discharge After a Stroke - Discharge Summary/Plan Comment DC Time >30 min.: No - General Info Date of Service: 03/09/21 Admission Dx/Problem (Free Text: Admission Diagnosis/Problem Admission Diagnosis/Problem CVA, Cerebrovascular accident Functional Status: Reports: Pain Controlled, Tolerating Diet, Ambulating, Urinating - Review of Systems General: Reports: No Symptoms HEENT: Reports: No Symptoms Pulmonary: Reports: No Symptoms Cardiovascular: Reports: No Symptoms Gastrointestinal: Reports: No Symptoms Genitourinary: Reports: No Symptoms Musculoskeletal: Reports: No Symptoms Skin: Reports: No Symptoms Neurological: Reports: Difficulty Walking, Weakness, Gait Disturbance Psychiatric: Reports: Anxiety - Patient Data Vitals - Most Recent: Last Vital Signs Temp 97.8 F 03/09/21 06:00 Pulse 82 03/09/21 06:00 Resp 17 03/09/21 06:00 BP 151/67 H 03/09/21 06:00 Pulse Ox 96 03/09/21 06:00 Weight - Most Recent: 181 lb 12.8 oz Lab Results - Last 24 hrs: Laboratory Results - last 24 hr 03/09/21 03/09/21 Range/Units 06:31 06:35 PT 25.9 H (9.9-12.5) SEC INR 2.3 (2.0-3.5) POC Glucose 121 H (70-99) mg/dL Med Orders - Current: Current Medications Acetaminophen (Acetaminophen 325 Mg Tab) 650 mg PO Q4H PRN PRN Reason: Pain Last Admin: 03/04/21 21:28 Dose: 650 mg Documented by: Al Hydroxide/Mg Hydroxide (Aluminum Hydroxide/Magnesium Hydroxide/Simethicone Susp 30 Ml Cup) 30 ml PO Q4H PRN PRN Reason: Constipation Amlodipine Besylate (Amlodipine 5 Mg Tab) 5 mg PO DAILY AMANDA Last Admin: 03/08/21 09:13 Dose: 5 mg Documented by: Aspirin (Aspirin 81 Mg Tab.Ec) 81 mg PO DAILY [facility] Last Admin: 03/08/21 09:13 Dose: 81 mg Documented by: Atenolol (Atenolol 50 Mg Tab) 50 mg PO DAILY [facility] Last Admin: 03/08/21 09:14 Dose: 50 mg Documented by: Atorvastatin Calcium (Atorvastatin 10 Mg Tab) 5 mg PO BEDTIME [facility] Last Admin: 03/08/21 20:55 Dose: 5 mg Documented by: Bisacodyl (Bisacodyl 10 Mg Supp) 10 mg RECTAL DAILY PRN PRN Reason: Constipation Calcium Carbonate/Glycine (Calcium Carbonate 750 Mg Tab.Chew) 750 mg PO TID PRN PRN Reason: Heartburn Last Admin: 03/03/21 19:42 Dose: 750 mg Documented by: Calcium Citrate (Calcium Citrate/Vitamin D3 315 Mg-250 Unit Tab) 3 tab PO DAILY [facility] Last Admin: 03/08/21 09:12 Dose: 3 tab Documented by: Diclofenac Sodium (Diclofenac Sodium 1% Gel 100 Gm Tube) 4 gm TOP Q6H PRN PRN Reason: Pain Duloxetine HCl (Duloxetine 60 Mg Cap) 60 mg PO DAILY [facility] Last Admin: 03/08/21 09:13 Dose: 60 mg Documented by: Furosemide (Furosemide 20 Mg Tab) 20 mg PO DAILY [facility] Last Admin: 03/08/21 09:14 Dose: 20 mg Documented by: Levothyroxine Sodium (Levothyroxine 88 Mcg Tab) 88 mcg PO ACBREAKFAST [facility] Last Admin: 03/09/21 06:32 Dose: 88 mcg Documented by: Lidocaine (Lidocaine 4% 1 Each Patch) 1 each TOP DAILY [facility] Last Admin: 03/08/21 09:14 Dose: 1 each Documented by: Magnesium Chloride (Magnesium Chloride 64 Mg Tab.Er) 64 mg PO DAILY [facility] Last Admin: 03/08/21 09:18 Dose: 64 mg Documented by: Magnesium Hydroxide (Magnesium Hydroxide 400 Mg/5 Ml Susp 30 Ml Cup) 30 ml PO DAILY PRN PRN Reason: Constipation Melatonin (Melatonin 3 Mg Tab) 3 mg PO BEDTIME PRN PRN Reason: Insomnia Metformin HCl (Metformin 500 Mg Tab) 500 mg PO DAILY [facility] Last Admin: 03/08/21 09:13 Dose: 500 mg Documented by: Nortriptyline HCl (Nortriptyline 10 Mg Cap) 10 mg PO BEDTIME [facility] Last Admin: 03/08/21 20:55 Dose: 10 mg Documented by: Ondansetron HCl (Ondansetron 4 Mg Tab.Dis) 4 mg PO Q4H PRN PRN Reason: Nausea Pantoprazole Sodium (Pantoprazole 40 Mg Tab.Cr) 40 mg PO DAILY [facility] Last Admin: 03/08/21 09:14 Dose: 40 mg Documented by: Pharmacy Consult (Warfarin Pharmacy Dose/Monitor) 1 each .XX ASDIRECTED [facility] Polyethylene Glycol (Polyethylene Glycol 3350 Powder 17 Gm Packet) 17 gm PO DAILY PRN PRN Reason: Constipation Potassium Bicarbonate (Potassium Bicarbonate 25 Meq Tab.Eff) 25 meq PO DAILY [facility] Last Admin: 03/08/21 09:11 Dose: 25 meq Documented by: Promethazine HCl (Promethazine 25 Mg Tab) 25 mg PO Q6H PRN PRN Reason: Nausea Senna/Docusate Sodium (Docusate Sodium/Sennosides 50-8.6 Mg Tab) 2 tab PO BID PRN PRN Reason: Constipation Last Admin: 03/04/21 08:09 Dose: 2 tab Documented by: Simethicone (Simethicone 80 Mg Tab.Chew) 80 mg PO TID PRN PRN Reason: Gas Warfarin Sodium (Warfarin 2 Mg Tab) 4 mg PO BEDTIME [facility] Last Admin: 03/08/21 20:55 Dose: 4 mg Documented by: Discontinued Medications Nystatin (Nystatin Crm 30 Gm Tube) 0 gm TOP BID [facility] Stop: 03/07/21 20:00 Last Admin: 03/07/21 21:14 Dose: Not Given Documented by: Potassium Bicarbonate (Potassium Bicarbonate 25 Meq Tab.Eff) 25 meq PO TID [facility] Last Admin: 03/08/21 09:20 Dose: Not Given Documented by: Warfarin Sodium (Warfarin 2 Mg Tab) 4 mg PO BEDTIME [facility] Last Admin: 02/20/21 20:02 Dose: 4 mg Documented by: Warfarin Sodium (Warfarin 1 Mg Tab) 3 mg PO BEDTIME [facility] Last Admin: 02/23/21 19:33 Dose: 3 mg Documented by: - Exam General: Reports: Alert, Oriented, Cooperative, No Acute Distress Lungs: Reports: Clear to Auscultation, Normal Respiratory Effort Cardiovascular: Reports: Regular Rate, Regular Rhythm, No Murmurs GI/Abdominal Exam: Normal Bowel Sounds, Soft Skin: Reports: Warm, Dry, Intact Neurological: Reports: No New Focal Deficit Psy/Mental Status: Reports: Alert, Normal Affect, Normal Mood *Q Meaningful Use (DIS) - VTE *Q VTE Pharmacological Contraindications *Q: Not Candidate LT Anticoag
[2021-03-09] MEDS: Potassium Bicarbonate 25 MEQ Tab.EFF PO SCH (08:59)
[2021-03-09] MEDS: DULoxetine 60 MG Cap PO SCH (08:59)
[2021-03-09] MEDS: Calcium Citrate/Vitamin D3 315 MG-250 Unit Tab PO SCH (08:59)
[2021-03-09] MEDS: amLODIPine 5 MG Tab PO SCH (08:59)
[2021-03-09] MEDS: Pantoprazole 40 MG Tab.CR PO SCH (08:59)
[2021-03-09] MEDS: metFORMIN 500 MG Tab PO SCH (09:00)
[2021-03-09] MEDS: Magnesium Chloride 64 MG Tab.ER PO SCH (09:00)
[2021-03-09] MEDS: Atenolol 50 MG Tab PO SCH (09:00)
[2021-03-09] MEDS: Aspirin 81 MG Tab.EC PO SCH (09:00)
[2021-03-09] MEDS: Furosemide 20 MG Tab PO SCH (09:00)
[2021-03-09] MEDS: Lidocaine 4% 1 each Patch TOP SCH (09:01)
== END 2021-03-09 10:30 | disposition home or self-care (01) | DRG 57 ==
LOC: VM.MS 22:20
PROVIDERS: ADMIT Physician Assistant; ATTEND Physician Assistant
DX: I69.351 Hemiplegia and hemiparesis following cerebral infarction affecting right dominant side (principal); E78.00 Pure hypercholesterolemia, unspecified; I10 Essential (primary) hypertension; N39.46 Mixed incontinence; M19.90 Unspecified osteoarthritis, unspecified site; G89.29 Other chronic pain; M54.9 Dorsalgia, unspecified; M79.7 Fibromyalgia; M54.5 Low back pain; F41.9 Anxiety disorder, unspecified; E03.9 Hypothyroidism, unspecified; Z90.89 Acquired absence of other organs; Z98.49 Cataract extraction status, unspecified eye; Z79.82 Long term (current) use of aspirin; Z79.890 Hormone replacement therapy; Z79.899 Other long term (current) drug therapy; Z79.01 Long term (current) use of anticoagulants; Z79.84 Long term (current) use of oral hypoglycemic drugs; M48.061 Spinal stenosis, lumbar region without neurogenic claudication; E87.6 Hypokalemia; Z20.822 Contact with and (suspected) exposure to COVID-19
CPT/HCPCS: 36415; 80048; 82947; 83735; 84132; 85610; 97110-GO; 97110-GP; 97116-GP; 97162-GP; 97165-GO; 97530-GP; 97535-GO; A9270-GY; U0002

== ENCOUNTER 2021-03-14 19:07 | Emergency (ER) | payer MEDICARE, OTHER ==
--- NOTE | 2021-03-14 19:16 | EDM.PDOC ---
ED HPI GENERAL MEDICAL PROBLEM - General Chief Complaint: General Stated Complaint: Feels Like her Potassium is Low Time Seen by Provider: 03/14/21 19:30 Source of Information: Reports: Patient, Family History Limitations: Reports: No Limitations - History of Present Illness INITIAL COMMENTS - FREE TEXT/NARRATIVE: Patient presents today with concerns of low potassium. She recently had a stroke with a sequelae of right leg weakness. Her and her have moved into [facility] assisted living in the last week. They are not setting up their own medications or making their own food. Patient was hospitalized post stroke for concerns of right leg weakness. SHe was found to have low potassium and discharged home on oral potassium and magnesium replacement. Patient does not think she is getting this medication. Today her right leg felt weak and she had some general fatigue and became concerned about her electrolytes. No diarrhea, but is on lasix and is getting good diuresis from this. no new neurological changes, no new neurological deficits. is with and states that she is at her baseline. . - Related Data Allergies Allergy/AdvReac Type Severity Reaction Status Date / Time No Known Allergies Allergy Verified 02/19/21 10:49 Home Meds: Home Meds DULoxetine [Cymbalta] 60 mg PO DAILY 05/17/17 [History] atenoloL [Atenolol] 50 mg PO DAILY 05/17/17 [History] Furosemide 20 mg PO DAILY 03/05/20 [History] Levothyroxine [Synthroid] 88 mcg PO ACBREAKFAST 03/05/20 [History] Nortriptyline 10 mg PO BEDTIME 03/05/20 [History] atorvaSTATin [Lipitor] 5 mg PO BEDTIME 03/05/20 [History] Acetaminophen 650 mg PO Q4H PRN 02/19/21 [History] Alum Hydrox/Mag Hydrox/Simeth [Mag-Al Plus] 30 ml PO Q4H PRN 02/19/21 [History] Aspirin 81 mg PO DAILY 02/19/21 [History] Bisacodyl [Laxative Suppository] 10 mg RC DAILY PRN 02/19/21 [History] Calcium Carbonate [Tums] 500 mg PO TID PRN 02/19/21 [History] Calcium Citrate 950 mg PO DAILY 02/19/21 [History] Diclofenac Sodium [Voltaren 1% Gel] 4 gm TOP Q6H PRN 02/19/21 [History] Docusate Sodium/Benzocaine [Enemeez Plus Mini Enema] 5 ml RC BEDTIME PRN 02/19/21 [History] Lidocaine 4% [Aspercreme 4%] 1 patch TP DAILY 02/19/21 [History] Magnesium Hydroxide [Milk of Magnesia] 30 ml PO DAILY PRN 02/19/21 [History] Melatonin 3 mg PO BEDTIME PRN 02/19/21 [History] Ondansetron [Ondansetron Odt] 4 mg PO Q4H PRN 02/19/21 [History] Pantoprazole [ProTONIX] 40 mg PO DAILY 02/19/21 [History] Promethazine [Phenergan] 25 mg PO Q6H PRN 02/19/21 [History] Sennosides/Docusate Sodium [Docusate Sodium-Sennosides Tab] 2 tab PO BID PRN 02/19/21 [History] Simethicone 80 mg PO TID PRN 02/19/21 [History] Sodium Phosphate,[place]-Dibasic [Enema Ready To Use] 133 ml RC DAILY PRN 02/19/21 [History] Warfarin [Coumadin] 4 mg PO BEDTIME 02/19/21 [History] amLODIPine [Norvasc] 5 mg PO DAILY 02/19/21 [History] cloNIDine [Catapres] 0.1 mg PO Q6H PRN 02/19/21 [History] hydrALAZINE [Apresoline] 25 mg PO Q6H PRN 02/19/21 [History] metFORMIN HCl [Metformin HCl] 500 mg PO DAILY 02/19/21 [History] polyethylene glycoL 3350 [Polyethylene Glycol 3350] 17 gm PO DAILY PRN 02/19/21 [History] Potassium Chloride 40 meq PO DAILY #120 cup 03/14/21 [Rx] Potassium Chloride 40 meq PO DAILY 1 Days #30 ml 03/14/21 [Rx] Past Medical History - Past Health History Medical/Surgical History: Denies Medical/Surgical History HEENT History: Reports: Other (See Below) Other HEENT History: Thyroid eye disease Cardiovascular History: Reports: High Cholesterol, Hypertension Genitourinary History: Reports: Other (See Below) Other Genitourinary History: Mixed stress and urge incontinece Musculoskeletal History: Reports: Arthritis, Back Pain, Chronic, Fibromyalgia, Osteoarthritis, Other (See Below) Other Musculoskeletal History: Chronic right sided low back pain. Spinal stenosis. Plantar fasciits. Cervical stenosis. Lumbar stenosis Neurological History: Reports: CVA Psychiatric History: Reports: Anxiety, Other (See Below) Other Psychiatric History: Disinhibition behavior Endocrine/Metabolic History: Reports: Diabetes, Type II, Hyperthyroidism, Hypothyroidism Other Endocrine/Metabolic History: Postablative hypothyroidism. Recent night sweats. Graves Disease Dermatologic History: Reports: Other (See Below) Other Dermatologic History: yeast dermatitis - Past Surgical History HEENT Surgical History: Reports: Cataract Surgery, Tonsillectomy Other HEENT Surgeries/Procedures: Tympanoplasty Endocrine Surgical History: Reports: Thyroidectomy Musculoskeletal Surgical History: Reports: Arthroscopic Knee Social & Family History - Family History Family Medical History: No Pertinent Family History - Living Situation & Occupation Occupation: Retired ED ROS GENERAL - Review of Systems Review Of Systems: See Below Constitutional: Reports: Weakness HEENT: Reports: No Symptoms Respiratory: Reports: No Symptoms Cardiovascular: Reports: No Symptoms Endocrine: Reports: No Symptoms GI/Abdominal: Reports: No Symptoms : Reports: No Symptoms Musculoskeletal: Reports: Other (right leg weakness post stroke, no new symptoms) Skin: Reports: No Symptoms Psychiatric: Reports: No Symptoms ED EXAM, GENERAL - Physical Exam Exam: See Below Exam Limited By: No Limitations General Appearance: Alert, No Apparent Distress Eye Exam: Bilateral Eye: EOMI, PERRL Ears: Normal External Exam Nose: Normal Inspection Throat/Mouth: Normal Inspection, Normal Lips, Normal Teeth, Normal Oropharynx Head: Atraumatic Neck: Normal Inspection Respiratory/Chest: No Respiratory Distress, Lungs Clear, Normal Breath Sounds, No Accessory Muscle Use Cardiovascular: Normal Peripheral Pulses, Regular Rate, Rhythm, No Edema, No Murmur GI/Abdominal: Normal Bowel Sounds Extremities: Normal Inspection, Normal Range of Motion, Non-Tender, No Pedal Edema, Other (normal strength in the upper extremities, 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 minimal 3/4 strength in the right lower extremity compared to the left with knee flexion, extension and hip flexion. 4/4 strength foot dorsi and plantar flexion bilateral. normal distal pulses) Neurological: Alert, Oriented Course - Orders/Labs/Meds Orders: Active Orders 24 hr Category Date Time Status COMPREHENSIVE METABOLIC PN,CMP [CHEM] Stat Lab 03/14/21 19:18 Ordered INR,PT,PROTHROMBIN TIME [COAG] Stat Lab 03/14/21 19:19 Ordered MAGNESIUM [CHEM] Stat Lab 03/14/21 19:18 Ordered Labs: Laboratory Tests 03/14/21 Range/Units 19:20 WBC 6.0 (4.0-10.0) x10^3/uL RBC 3.85 L (4.00-5.50) x10^6/uL Hgb 11.1 L (12.0-16.0) g/dL Hct 34.3 (33.0-47.0) % MCV 89.1 (78.0-93.0) fL MCH 28.8 (26.0-32.0) pg MCHC 32.4 (32.0-36.0) g/dL RDW Coeff of Clarisa 13.6 (10.0-15.0) % Plt Count 326 (130-400) x10^3/uL Neut % (Auto) 43.7 L (50.0-80.0) % Lymph % (Auto) 41.2 (25.0-50.0) % Levy % (Auto) 7.3 (2.0-11.0) % Eos % (Auto) 7.5 H (0.0-4.0) % Baso % (Auto) 0.3 (0.2-1.2) % - Re-Assessments/Exams Free Text/Narrative Re-Assessment/Exam: 03/14/21 19:48 discussed with patient about some fluctuation of the strength in the right leg post stroke. Last potassium was 3.2 and I do not see potassium on her medication list from the assisted living center 03/14/21 20:09 potassium is still slightly low. Will give 40 meq here, one dose for tomorrow and script for the week. Needs to hold coumadin for two days. recheck inr in a few days. Departure - Departure Time of Disposition: 19:53 Disposition: Home, Self-Care 01 Clinical Impression: Hypokalemia, Supratherapeutic INR - Discharge Information *PRESCRIPTION DRUG MONITORING PROGRAM REVIEWED*: Not Applicable *COPY OF PRESCRIPTION DRUG MONITORING REPORT IN PATIENT ROBERTO: Not Applicable Prescriptions: Potassium Chloride 40 meq PO DAILY #120 cup Potassium Chloride 40 meq PO DAILY 1 Days #30 ml Instructions: Hypokalemia, Potassium Content of Foods Referrals: Fernando,Qiana L, PA-C [Primary Care Provider] - Forms: ED Department Discharge Additional Instructions: Take 40 meq of potassium daily, you were given a dose today. Make sure you increase the potassium content in foods. make appointment to follow up with your your PCP. Your INR ( coumadin level) is high at 4.4. Hold your coumadin for the next 2 days and recheck with your physician as to dosing of this medication. - My Orders Last 24 Hours: My Active Orders 03/14/21 19:18 COMPREHENSIVE METABOLIC PN,CMP [CHEM] Stat MAGNESIUM [CHEM] Stat 03/14/21 19:19 INR,PT,PROTHROMBIN TIME [COAG] Stat - Assessment/Plan Last 24 Hours: My Active Orders 03/14/21 19:18 COMPREHENSIVE METABOLIC PN,CMP [CHEM] Stat MAGNESIUM [CHEM] Stat 03/14/21 19:19 INR,PT,PROTHROMBIN TIME [COAG] Stat
[2021-03-14 19:49] LABS: ANION GAP 14.3 mmol/L (5-15)
[2021-03-14] MEDS ORDERED: Potassium Chloride 10% 20 MEQ/15 ML Soln 15 ML UD Cup PO ONE (19:51)
[2021-03-14 22:27] VITALS: BP 162/71; PULSE 78
== END 2021-03-14 20:30 | disposition home or self-care (01) ==
LOC: VM.ED 19:07
DX: E87.6 Hypokalemia (principal); R79.1 Abnormal coagulation profile; E11.9 Type 2 diabetes mellitus without complications; E03.9 Hypothyroidism, unspecified; E78.00 Pure hypercholesterolemia, unspecified; I10 Essential (primary) hypertension; Z79.82 Long term (current) use of aspirin; Z79.84 Long term (current) use of oral hypoglycemic drugs; Z79.899 Other long term (current) drug therapy
CPT/HCPCS: 80053; 83735; 85025; 85610; 99284; A9270-GY

== ENCOUNTER 2021-07-06 07:23 | Emergency (ER) | payer MEDICARE, OTHER ==
[2021-07-06] MEDS ORDERED: Acetaminophen 500 MG Tab PO ONE (07:40)
[2021-07-06 07:49] VITALS: BP 140/58; PULSE 82
--- NOTE | 2021-07-06 08:10 | EDM.PDOC ---
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 SHe takes Coumadin for this. She sleeps very closer to the side of the bed and last nihgt at about 12:30 she slid off of the edge of the bed striking her left ankle on something. SHe immediately called out for her that was in bed with her. She denied hurting anything else. Did not hit her head. Other than left ankle pain that she did not attempt to weight bear on, no injuries. NO previous problems with this ankle. Usually walks with a walker and depends on this ankle for weight bearing due to weakness on the right from the CVA Onset: Today Onset Time: 00:30 Duration: Hour(s): Location: Reports: Lower Extremity, Left Severity: Moderate Improves with: Reports: None Worsens with: Reports: Movement Associated Symptoms: Reports: No Other Symptoms Left Ankle Pain Score (Numeric/FACES): 8 - Related Data Allergies Allergy/AdvReac Type Severity Reaction Status Date / Time No Known Allergies Allergy Verified 07/06/21 08:46 Home Meds: Home Meds DULoxetine [Cymbalta] 60 mg PO DAILY 05/17/17 [History] atenoloL [Atenolol] 50 mg PO DAILY 05/17/17 [History] Furosemide 20 mg PO DAILY 03/05/20 [History] Levothyroxine [Synthroid] 88 mcg PO ACBREAKFAST 03/05/20 [History] Nortriptyline 10 mg PO BEDTIME 03/05/20 [History] atorvaSTATin [Lipitor] 5 mg PO BEDTIME 03/05/20 [History] Acetaminophen 650 mg PO Q4H PRN 02/19/21 [History] Alum Hydrox/Mag Hydrox/Simeth [Mag-Al Plus] 30 ml PO Q4H PRN 02/19/21 [History] Aspirin 81 mg PO DAILY 02/19/21 [History] Bisacodyl [Laxative Suppository] 10 mg RC DAILY PRN 02/19/21 [History] Calcium Carbonate [Tums] 500 mg PO TID PRN 02/19/21 [History] Calcium Citrate 950 mg PO DAILY 02/19/21 [History] Diclofenac Sodium [Voltaren 1% Gel] 4 gm TOP Q6H PRN 02/19/21 [History] Docusate Sodium/Benzocaine [Enemeez Plus Mini Enema] 5 ml RC BEDTIME PRN 02/19/21 [History] Lidocaine 4% [Aspercreme 4%] 1 patch TP DAILY 02/19/21 [History] Magnesium Hydroxide [Milk of Magnesia] 30 ml PO DAILY PRN 02/19/21 [History] Melatonin 3 mg PO BEDTIME PRN 02/19/21 [History] Ondansetron [Ondansetron Odt] 4 mg PO Q4H PRN 02/19/21 [History] Pantoprazole [ProTONIX] 40 mg PO DAILY 02/19/21 [History] Promethazine [Phenergan] 25 mg PO Q6H PRN 02/19/21 [History] Sennosides/Docusate Sodium [Docusate Sodium-Sennosides Tab] 2 tab PO BID PRN 02/19/21 [History] Simethicone 80 mg PO TID PRN 02/19/21 [History] Sodium Phosphate,Nodaway-Dibasic [Enema Ready To Use] 133 ml RC DAILY PRN 02/19/21 [History] Warfarin [Coumadin] 4 mg PO BEDTIME 02/19/21 [History] amLODIPine [Norvasc] 5 mg PO DAILY 02/19/21 [History] cloNIDine [Catapres] 0.1 mg PO Q6H PRN 02/19/21 [History] hydrALAZINE [Apresoline] 25 mg PO Q6H PRN 02/19/21 [History] metFORMIN HCl [Metformin HCl] 500 mg PO DAILY 02/19/21 [History] polyethylene glycoL 3350 [Polyethylene Glycol 3350] 17 gm PO DAILY PRN 02/19/21 [History] Potassium Chloride 40 meq PO DAILY #120 cup 03/14/21 [Rx] Potassium Chloride 40 meq PO DAILY 1 Days #30 ml 03/14/21 [Rx] Past Medical History - Past Health History Medical/Surgical History: Denies Medical/Surgical History HEENT History: Reports: Other (See Below) Other HEENT History: Thyroid eye disease Cardiovascular History: Reports: High Cholesterol, Hypertension Genitourinary History: Reports: Other (See Below) Other Genitourinary History: Mixed stress and urge incontinece Musculoskeletal History: Reports: Arthritis, Back Pain, Chronic, Fibromyalgia, Osteoarthritis, Other (See Below) Other Musculoskeletal History: Chronic right sided low back pain. Spinal stenosis. Plantar fasciits. Cervical stenosis. Lumbar stenosis Neurological History: Reports: CVA Psychiatric History: Reports: Anxiety, Other (See Below) Other Psychiatric History: Disinhibition behavior Endocrine/Metabolic History: Reports: Diabetes, Type II, Hyperthyroidism, Hypothyroidism Other Endocrine/Metabolic History: Postablative hypothyroidism. Recent night sweats. Graves Disease Dermatologic History: Reports: Other (See Below) Other Dermatologic History: yeast dermatitis - Past Surgical History HEENT Surgical History: Reports: Cataract Surgery, Tonsillectomy Other HEENT Surgeries/Procedures: Tympanoplasty Endocrine Surgical History: Reports: Thyroidectomy Musculoskeletal Surgical History: Reports: Arthroscopic Knee Social & Family History - Family History Family Medical History: No Pertinent Family History - Living Situation & Occupation Occupation: Retired Review of Systems - Review of Systems Review Of Systems: See Below Constitutional: Reports: No Symptoms. Denies: Fever, Weakness Eyes: Reports: No Symptoms Ears: Reports: No Symptoms Nose: Reports: No Symptoms Mouth/Throat: Reports: No Symptoms Respiratory: Reports: No Symptoms Cardiovascular: Reports: No Symptoms GI/Abdominal: Reports: No Symptoms Musculoskeletal: Reports: Back Pain (chronically), Joint Pain (left ankle) Skin: Reports: No Symptoms Neurological: Reports: Difficulty Walking (chronically due to stroke and right sided weakness) Psychiatric: Reports: No Symptoms ED EXAM, GENERAL - Physical Exam Exam: See Below Exam Limited By: No Limitations General Appearance: Alert, No Apparent Distress Eye Exam: Bilateral Eye: EOMI, Normal Inspection, PERRL Nose: Normal Inspection, Normal Mucosa, No Blood Throat/Mouth: Normal Inspection, Normal Lips, Normal Teeth Head: Atraumatic, Normocephalic Neck: Normal Inspection, Supple, Non-Tender Respiratory/Chest: No Respiratory Distress, Lungs Clear, Normal Breath Sounds, Chest Non-Tender Cardiovascular: Normal Peripheral Pulses, Regular Rate, Rhythm, No Edema GI/Abdominal: Normal Bowel Sounds Extremities: Joint Swelling (left ankle at the lateral and medial mallelous.. sensation intact to the foot. dorsalis pedis posterior tibialis pulses present. normal rom and sensation to the toes,. no pain to compression of the distal lower leg on the left) Neurological: Alert, Oriented Course - Vital Signs Last Recorded V/S: Last Vital Signs Temp 36.6 C 07/06/21 07:25 Pulse 82 07/06/21 07:25 Resp 16 07/06/21 07:25 BP 140/58 L 07/06/21 07:25 Pulse Ox 98 07/06/21 07:25 - Orders/Labs/Meds Orders: Active Orders 24 hr Category Date Time Status Ankle Min 3V Lt [CR] Stat Exams 07/06/21 07:33 Ordered DME for Discharge [COMM] Stat Oth 07/06/21 08:12 Ordered Meds: Medications Discontinued Medications Generic Name Dose Route Start Last Admin Trade Name Manish PRN Reason Stop Dose Admin Acetaminophen 500 mg 07/06/21 07:40 07/06/21 07:52 Acetaminophen 500 Mg Tab PO 07/06/21 07:41 500 mg ONETIME ONE Administration - Radiology Interpretation Free Text/Narrative:: no acute fracture of dislocation, osteoarthritis noted. interpreted by radiologist - Re-Assessments/Exams Free Text/Narrative Re-Assessment/Exam: 07/06/21 09:04 no fracture seen. Will put in cam walker boot. Will see if she can pivot weight bear. She lives with her , however he is leaving today and her son is coming to be with her. Has a walker and assisted living has staff to help and a wheelchair if needed. Call to [facility] to make arrangements for son to stay and use to wheelchair and extra assistance 07/06/21 09:14 Managed to take a few steps, pivoted, will need wheelchair for longer distances, has a walker. Follow up with PCP. Departure - Departure Time of Disposition: 09:16 (assisted living) Disposition: Home, Self-Care 01 Clinical Impression: Left ankle sprain - Discharge Information Instructions: Ankle Sprain, [id number] Forms: ED Department Discharge Additional Instructions: Ice, elevate, sarahi wrap and tylenol for pain. NO fracture is seen . Use the walker boot to help with weight bearing and walker at all times. If you are going further distance, you will need assistance with a wheelchair. You son will need to stay with you to help. You may need assistance with transfers. [facility] is aware of this. Take tylenol 500 mg every 4 hours as needed for pain. Follow up with primary care Sepsis Event Note (ED) - Evaluation Sepsis Screening Result: No Definite Risk - Focused Exam Vital Signs: Vital Signs Temp Pulse Resp BP Pulse Ox 07/06/21 07:25 36.6 C 82 16 140/58 L 98 - My Orders Last 24 Hours: My Active Orders 07/06/21 07:33 Ankle Min 3V Lt [CR] Stat 07/06/21 08:12 DME for Discharge [COMM] Stat - Assessment/Plan Last 24 Hours: My Active Orders 07/06/21 07:33 Ankle Min 3V Lt [CR] Stat 07/06/21 08:12 DME for Discharge [COMM] Stat
--- NOTE | 2021-07-06 08:46 | CR ---
[id number] RAD/RAD Ankle Left 3V Min Exam: RAD Ankle Left 3V Min Indication:PAIN, SWELLING. Comparison: No prior imaging for comparison. Discussion/Impression: No acute fracture or dislocation. No AVN or erosive changes. Scattered changes of osteoarthritis. Findings include joint space narrowing at the talonavicular articulation. Achilles tendon enthesopathy at its calcaneal attachment. Vascular calcifications in the lower leg extending into the foot. Cory Deal MD 07/06/21 0845 Thank you for allowing us to participate in the care of your patient.
== END 2021-07-06 09:55 | disposition home or self-care (01) ==
LOC: VM.ED 07:23
DX: S93.402A Sprain of unspecified ligament of left ankle, initial encounter (principal); E78.00 Pure hypercholesterolemia, unspecified; I10 Essential (primary) hypertension; E11.9 Type 2 diabetes mellitus without complications; E05.90 Thyrotoxicosis, unspecified without thyrotoxic crisis or storm; Z79.82 Long term (current) use of aspirin; Z79.899 Other long term (current) drug therapy; Z79.84 Long term (current) use of oral hypoglycemic drugs; W06.XXXA Fall from bed, initial encounter
CPT/HCPCS: 73610-LT; 99283; 99283-25; A9270-GY

== ENCOUNTER 2023-08-13 14:20 | Emergency (ER) | payer MEDICARE, OTHER ==
[2023-08-13 15:41] VITALS: PULSE 81
[2023-08-13 15:46] VITALS: BP 131/66
== END 2023-08-13 15:13 | disposition home or self-care (01) ==
LOC: VM.ED 14:20
DX: Z01.30 Encounter for examination of blood pressure without abnormal findings (principal); E78.00 Pure hypercholesterolemia, unspecified; K21.9 Gastro-esophageal reflux disease without esophagitis; I10 Essential (primary) hypertension; Z86.73 Personal history of transient ischemic attack (TIA), and cerebral infarction without residual deficits; M19.90 Unspecified osteoarthritis, unspecified site; E11.9 Type 2 diabetes mellitus without complications; E03.9 Hypothyroidism, unspecified; Z79.82 Long term (current) use of aspirin; Z79.01 Long term (current) use of anticoagulants; Z79.84 Long term (current) use of oral hypoglycemic drugs; Z79.899 Other long term (current) drug therapy
CPT/HCPCS: 99281; 99284

== ENCOUNTER 2025-02-04 18:00 | Inpatient (IN) | payer MEDICARE, OTHER ==
[2025-02-04] MEDS ORDERED: Sodium Chloride 0.9% 10 ML Syringe FLUSH PRN (18:06)
[2025-02-04 18:22] LABS: BASOPHILS PERCENT AUTO 0.3 % (0.2-1.2); EOSINOPHILS ABSOLUTE AUTO 0.3 x10^3/uL (0.0-0.5); EOSINOPHILS PERCENT AUTO 2.9 % (0.0-4.0); HEMATOCRIT 39.3 % (33.0-47.0); HEMOGLOBIN 13.2 g/dL (12.0-16.0); IMMATURE GRAN ABSOLUTE AUTO 0.01 x10^3/uL (0.00-0.07); LYMPHOCYTES ABSOLUTE AUTO 4.1 x10^3/uL (1.0-4.8); LYMPHOCYTES PERCENT AUTO 45.8 % (25.0-50.0); MEAN CORPUSCULAR HEMOGLOBIN 32.7 pg (26.0-32.0); MEAN CORPUSCULAR HGB CONC 33.6 g/dL (32.0-36.0); MEAN CORPUSCULAR VOLUME 97.3 fL (78.0-93.0); MONOCYTES ABSOLUTE AUTO 0.8 x10^3/uL (0.0-0.8); MONOCYTES PERCENT AUTO 8.5 % (2.0-11.0); NEUTROPHILS ABSOLUTE AUTO 3.8 x10^3/uL (1.8-7.7); NEUTROPHILS PERCENT AUTO 42.4 % (50.0-80.0); PLATELET COUNT,PLT 261 x10^3/uL (130-400); RED BLOOD CELL COUNT 4.04 x10^6/uL (4.00-5.50); WHITE BLOOD CELL COUNT,WBC 8.9 x10^3/uL (4.0-10.0)
[2025-02-04 18:44] LABS: A/G RATIO 1.09; ALANINE AMINOTRANSFERASE,ALT 19 U/L (14-59); ALBUMIN 3.7 g/dL (3.4-5.0); ALKALINE PHOSPHATASE 237 U/L (46-116); ASPARTATE AMNIOTRANSFERASE,AST 17 U/L (15-37); BILIRUBIN TOTAL 0.5 mg/dL (0.2-1.0); BLOOD UREA NITROGEN,BUN 12 mg/dL (7-18); CALCIUM 9.1 mg/dL (8.5-10.1); CARBON DIOXIDE,CO2 31 mmol/L (21-32); CHLORIDE,CL 97 mmol/L (98-107); CREATININE 0.8 mg/dL (0.55-1.02); ESTIMATED GFR 72 mL/min (>=60); GLUCOSE RANDOM 163 mg/dL (70-99); PROTEIN TOTAL,TP 7.1 g/dL (6.4-8.2); SODIUM,NA 137 mmol/L (136-145)
[2025-02-04 18:59] LABS: INR 2.9 (0.9-1.1); PROTHROMBIN TIME 29.3 SEC (9.6-12.0); PTT,PARTIAL THROMBOPLSTIN TIME 40.3 SEC (23.5-33.2)
[2025-02-04 19:08] LABS: APPEARANCE,URINE CLEAR (CLEAR); BILIRUBIN,URINE NEGATIVE (NEGATIVE); COLOR,URINE YELLOW (YELLOW); GLUCOSE,URINE NEGATIVE (NEGATIVE); KETONES,URINE NEGATIVE (NEGATIVE); LEUKOCYTE ESTERASE,URINE NEGATIVE (NEGATIVE); NITRITE,URINE NEGATIVE (NEGATIVE); OCCULT BLOOD,URINE NEGATIVE (NEGATIVE); PH,URINE 7.5 (5.0-8.0); PROTEIN,URINE NEGATIVE (NEGATIVE); UROBILINOGEN,URINE 0.2 EU/dL (0.2)
[2025-02-04] MEDS: Iopamidol 755 Mg/ML 100 ML Bottle IVPUSH ONE (20:23)
[2025-02-04] MEDS ORDERED: Diclofenac Sodium 1% Gel 100 GM Tube TOP PRN (23:53)
[2025-02-04] MEDS ORDERED: Magnesium Hydroxide 400 MG/5 ML Susp 30 ML Cup PO PRN (23:53)
[2025-02-04] MEDS ORDERED: Melatonin 3 MG Tab PO PRN (23:53)
[2025-02-04] MEDS ORDERED: Acetaminophen 650 MG Tab.ER PO PRN (23:53)
[2025-02-05] MEDS: DULoxetine 60 MG Cap PO SCH (01:35)
[2025-02-05] MEDS: Levothyroxine 125 MCG Tab PO SCH (06:09)
[2025-02-05] MEDS: Acetaminophen 650 MG Tab.ER PO SCH (06:09)
[2025-02-05] MEDS: Pantoprazole 20 MG Tab, Delayed Release PO SCH (06:09)
[2025-02-05] MEDS: amLODIPine 5 MG Tab PO SCH (08:46)
[2025-02-05] MEDS: metFORMIN 500 MG Tab PO SCH ×2 (08:46→17:16)
[2025-02-05] MEDS: Potassium Chloride 10 MEQ Tab.ER PO SCH (08:47)
[2025-02-05] MEDS: Loratadine 10 MG Tab PO SCH (08:47)
[2025-02-05] MEDS: Ascorbic Acid 500 MG Tab PO SCH (08:47)
[2025-02-05] MEDS: Atenolol 50 MG Tab PO SCH (08:47)
[2025-02-05] MEDS: Furosemide 20 MG Tab PO SCH (08:47)
[2025-02-05] MEDS ORDERED: Non-Formulary Medication 1 Each (Levocetirizine Dihydrochloride [Xyzal] 5 MG Tablet) PO SCH (09:00)
[2025-02-05] MEDS ORDERED: Calcium Carbonate 750 MG Tab.Chew PO PRN (09:30)
[2025-02-05] MEDS ORDERED: Acetaminophen 325 MG Tab PO PRN (09:45)
[2025-02-05] MEDS: Calcium Citrate/Vitamin D3 315 MG-250 Unit Tab PO SCH (11:46)
[2025-02-05] MEDS ORDERED: Warfarin 5 MG Tab PO SCH (17:00)
[2025-02-05] MEDS: Ferrous Sulfate 325 MG Tab PO SCH (17:16)
[2025-02-05] MEDS: atorvaSTATin 10 MG Tab PO SCH (21:46)
[2025-02-05] MEDS: Polyethylene Glycol 3350 Powder 17 GM Packet PO PRN (21:49)
[2025-02-05] MEDS: traMADol 50 MG Tab PO PRN (21:52)
[2025-02-06 07:10] LABS: INR 2.1 (0.9-1.1); PROTHROMBIN TIME 22.3 SEC (9.6-12.0)
[2025-02-06] MEDS: Apixaban 5 MG Tab PO SCH (21:43)
[2025-02-07 06:22] VITALS: PULSE 82
[2025-02-07 06:42] LABS: BASOPHILS PERCENT AUTO 0.6 % (0.2-1.2); EOSINOPHILS ABSOLUTE AUTO 0.4 x10^3/uL (0.0-0.5); EOSINOPHILS PERCENT AUTO 5.1 % (0.0-4.0); HEMATOCRIT 35.2 % (33.0-47.0); HEMOGLOBIN 11.9 g/dL (12.0-16.0); IMMATURE GRAN ABSOLUTE AUTO 0.01 x10^3/uL (0.00-0.07); LYMPHOCYTES ABSOLUTE AUTO 3.4 x10^3/uL (1.0-4.8); LYMPHOCYTES PERCENT AUTO 48.1 % (25.0-50.0); MEAN CORPUSCULAR HEMOGLOBIN 32.5 pg (26.0-32.0); MEAN CORPUSCULAR HGB CONC 33.8 g/dL (32.0-36.0); MEAN CORPUSCULAR VOLUME 96.2 fL (78.0-93.0); MONOCYTES ABSOLUTE AUTO 0.6 x10^3/uL (0.0-0.8); MONOCYTES PERCENT AUTO 8.1 % (2.0-11.0); NEUTROPHILS ABSOLUTE AUTO 2.7 x10^3/uL (1.8-7.7); PLATELET COUNT,PLT 253 x10^3/uL (130-400); RED BLOOD CELL COUNT 3.66 x10^6/uL (4.00-5.50)
[2025-02-07 06:55] LABS: CALCIUM 8.6 mg/dL (8.5-10.1); CREATININE 0.6 mg/dL (0.55-1.02); EST CRCL DRUG DOSING (CG) 58.12 mL/min; POTASSIUM,K 3.7 mmol/L (3.5-5.1)
[2025-02-07 06:56] LABS: ANION GAP 9.7 mmol/L (5-15)
[2025-02-07 07:08] LABS: INR 1.6 (0.9-1.1); PROTHROMBIN TIME 17.1 SEC (9.6-12.0)
[2025-02-07 12:40] VITALS: BP 120/52
== END 2025-02-07 11:40 | disposition home or self-care (01) | DRG 69 ==
LOC: VM.ED 18:00 → VM.MS 20:47 → OBSVTOIN 02-05 09:00
PROVIDERS: ADMIT Family Medicine; ATTEND Nurse Practitioner Family
DX: R41.82 Altered mental status, unspecified (principal); R47.81 Slurred speech; G45.9 Transient cerebral ischemic attack, unspecified; Z66 Do not resuscitate; E11.9 Type 2 diabetes mellitus without complications; E03.9 Hypothyroidism, unspecified; I10 Essential (primary) hypertension; K21.9 Gastro-esophageal reflux disease without esophagitis; F41.9 Anxiety disorder, unspecified; Z79.82 Long term (current) use of aspirin; F32.A Depression, unspecified; Z79.890 Hormone replacement therapy; E78.00 Pure hypercholesterolemia, unspecified; G89.29 Other chronic pain; M19.90 Unspecified osteoarthritis, unspecified site; K42.9 Umbilical hernia without obstruction or gangrene; E66.9 Obesity, unspecified; G31.84 Mild cognitive impairment of uncertain or unknown etiology; M79.7 Fibromyalgia; Z87.440 Personal history of urinary (tract) infections; Z79.01 Long term (current) use of anticoagulants; Z79.02 Long term (current) use of antithrombotics/antiplatelets; Z79.1 Long term (current) use of non-steroidal anti-inflammatories (NSAID); Z79.899 Other long term (current) drug therapy; Z79.84 Long term (current) use of oral hypoglycemic drugs; Z90.89 Acquired absence of other organs; Z98.890 Other specified postprocedural states; I69.328 Other speech and language deficits following cerebral infarction; S32.10XD Unspecified fracture of sacrum, subsequent encounter for fracture with routine healing; M80.00XD Age-related osteoporosis with current pathological fracture, unspecified site, subsequent encounter for fracture with routine healing; Z68.24 Body mass index [BMI] 24.0-24.9, adult
CPT/HCPCS: 36415; 70450; 70496; 70551; 80048; 80053; 81003; 82947; 84443; 84484; 85025; 85610; 85730; 93005; 93010; 97116-GP; 97129-GO; 97161-GP; 97165-GO; 99223; 99223-GT; 99284; 99285; A9270-GY; G0378; Q9967

== ENCOUNTER 2025-05-12 17:23 | Emergency (ER) | payer MEDICARE, OTHER ==
[2025-05-12 18:47] LABS: APPEARANCE,URINE CLEAR (CLEAR); GLUCOSE,URINE NEGATIVE (NEGATIVE); OCCULT BLOOD,URINE SMALL (NEGATIVE)
[2025-05-12 18:49] LABS: SQUAMOUS EPITHELIAL CELLS,UR FEW /HPF (NOT SEEN)
[2025-05-12 19:01] LABS: BASOPHILS ABSOLUTE AUTO 0.0 x10^3/uL (0.0-0.2); BASOPHILS PERCENT AUTO 0.1 % (0.2-1.2); EOSINOPHILS ABSOLUTE AUTO 0.0 x10^3/uL (0.0-0.5); EOSINOPHILS PERCENT AUTO 0.0 % (0.0-4.0); IMMATURE GRAN ABSOLUTE AUTO 0.02 x10^3/uL (0.00-0.07); IMMATURE GRAN PERCENT AUTO 0.20 % (0.00-0.43); LYMPHOCYTES ABSOLUTE AUTO 2.9 x10^3/uL (1.0-4.8); LYMPHOCYTES PERCENT AUTO 22.7 % (25.0-50.0); MONOCYTES ABSOLUTE AUTO 0.8 x10^3/uL (0.0-0.8); MONOCYTES PERCENT AUTO 6.3 % (2.0-11.0); NEUTROPHILS ABSOLUTE AUTO 8.9 x10^3/uL (1.8-7.7); NEUTROPHILS PERCENT AUTO 70.7 % (50.0-80.0); PLATELET COUNT,PLT 275 x10^3/uL (130-400); RED BLOOD CELL COUNT 2.75 x10^6/uL (4.00-5.50); WHITE BLOOD CELL COUNT,WBC 12.6 x10^3/uL (4.0-10.0)
[2025-05-12 19:26] LABS: A/G RATIO 1.17; ALANINE AMINOTRANSFERASE,ALT 14 U/L (14-59); ASPARTATE AMNIOTRANSFERASE,AST 14 U/L (15-37); BILIRUBIN TOTAL 0.5 mg/dL (0.2-1.0); BLOOD UREA NITROGEN,BUN 42 mg/dL (7-18); CARBON DIOXIDE,CO2 27 mmol/L (21-32); CHLORIDE,CL 101 mmol/L (98-107); CREATININE 1.1 mg/dL (0.55-1.02); ESTIMATED GFR 49 mL/min (>=60); GLUCOSE RANDOM 193 mg/dL (70-99); POTASSIUM,K 4.1 mmol/L (3.5-5.1); PROTEIN TOTAL,TP 5.2 g/dL (6.4-8.2); SODIUM,NA 140 mmol/L (136-145)
[2025-05-12 19:32] LABS: INR 1.2 (0.9-1.1)
[2025-05-12] MEDS ORDERED: Sodium Chloride 0.9% 10 ML Syringe FLUSH PRN (20:23)
[2025-05-12] MEDS: Lactated Ringers 1,000 ML IV ONE (20:25)
[2025-05-12 23:59] VITALS: BP 136/65; PULSE 100
== END 2025-05-12 21:20 | disposition home or self-care (01) ==
LOC: VM.ED 17:23
DX: D72.829 Elevated white blood cell count, unspecified (principal); R79.89 Other specified abnormal findings of blood chemistry; E78.00 Pure hypercholesterolemia, unspecified; I10 Essential (primary) hypertension; K21.9 Gastro-esophageal reflux disease without esophagitis; E11.9 Type 2 diabetes mellitus without complications; E03.9 Hypothyroidism, unspecified; Z86.73 Personal history of transient ischemic attack (TIA), and cerebral infarction without residual deficits; Z79.84 Long term (current) use of oral hypoglycemic drugs; Z79.899 Other long term (current) drug therapy; Z79.01 Long term (current) use of anticoagulants
CPT/HCPCS: 36415; 80053; 81001; 82274; 85025; 85610; 96360; 99284; 99284-25; J7120